=== PATIENT | female | born 1995 | race African-American/Black ===

== ENCOUNTER 2018-05-30 22:51 | Inpatient (IN) | payer MEDICAID ==
[~2018-05-30] VITALS: Ht 180.3 cm; Wt 134.3 kg
[2018-05-31] MEDS ORDERED: ONDANSETRON HCL 4MG/2ML INJ IV STA (00:23)
[2018-05-31] MEDS ORDERED: MORPHINE SULFATE 4 MG/ML CPJ (NOT FOR IM USE) IV STA (00:23)
[2018-05-31] MEDS ORDERED: SODIUM CHLORIDE 0.9% 1,000 ML IV ONE (00:23)
[2018-05-31 00:57] LABS: HEMOGLOBIN. 15.6 g/dL (12.0-16.0); MEAN CORPUSCULAR HEMOGLOBIN 28.4 pg (28.0-32.0); MEAN CORPUSCULAR VOLUME 85.6 fL (81.0-99.0); PLATELET 297 x1000/uL (130-400); RED CELL DISTRIBUTION WIDTH 14.2 % (11.6-14.6)
[2018-05-31 00:58] LABS: CHLORIDE 99 mEq/L (98-107)
[2018-05-31 01:00] LABS: INR 1.1; PROTHROMBIN TIME 11.5 sec (9.1-11.1)
[2018-05-31 01:02] LABS: CLARITY URINE TURBID (CLEAR); COLOR URINE DARK YELLOW (YELLOW); KETONES URINE TRACE (NEGATIVE); LEUKOCYTE ESTERASE URINE 3+ (NEGATIVE); NITRITE URINE NEGATIVE (NEGATIVE); OCCULT BLOOD URINE 3+ (NEGATIVE); PROTEIN URINE 1+ (NEGATIVE); SPECIFIC GRAVITY URINE 1.021 (1.005-1.030)
[2018-05-31 01:02] LABS: HCG SCREEN NEGATIVE
[2018-05-31 01:36] LABS: *AMPHETAMINES SCREEN URINE NEGATIVE (NEGATIVE)
[2018-05-31 01:37] LABS: *BARBITURATES SCREEN URINE NEGATIVE (NEGATIVE); *BENZODIAZEPINES SCREEN URINE NEGATIVE (NEGATIVE); *COCAINE SCREEN URINE NEGATIVE (NEGATIVE); METHADONE URINE SCREEN NEGATIVE (NEGATIVE); OPIATES URINE SCREEN NEGATIVE (NEGATIVE); PHENCYCLIDINE URINE SCREEN NEGATIVE (NEGATIVE)
[2018-05-31 01:43] LABS: CANNABINOID URINE SCREEN PRESUMTIVE POSITIVE (NEGATIVE)
[2018-05-31] MEDS ORDERED: SODIUM CHLORIDE 0.9% 1000ML BAG (SEPSIS BOLUS) IV ONE (02:45)
[2018-05-31 02:59] LABS: PLATELET ESTIMATE NORMAL
[2018-05-31] MEDS ORDERED: PIPERACILLIN/TAZOBACTAM 3.375GM/50ML PREMIX IV ONE (03:30)
[2018-05-31] MEDS ORDERED: VANCOMYCIN 1 G PREMIX 200 ML IV SCH (03:30)
[2018-05-31] MEDS ORDERED: PIPERACILLIN/TAZ 3.375G PREMIX 50 ML IV NR (03:45)
[2018-05-31] MEDS ORDERED: KETOROLAC 30MG/ML VIAL IV ONE (05:00)
[2018-05-31] MEDS ORDERED: CEFTRIAXONE 1,000 MG in DEXTROSE 5% WATER 50 ML IV SCH (07:45)
[2018-05-31 08:10] VITALS: BP 130/65
[2018-05-31] MEDS ORDERED: MORPHINE SULFATE 4 MG/ML CPJ (NOT FOR IM USE) IV PRN (08:25)
[2018-05-31] MEDS ORDERED: ONDANSETRON HCL 4MG TABLET PO NR (08:26)
[2018-05-31] MEDS ORDERED: CEFTRIAXONE 1 G PREMIX 50 ML IV SCH (09:30)
[2018-05-31] MEDS ORDERED: DIATR MEGLU/DIATRIZOATE SOLN 30ML PO SCH (10:15)
[2018-05-31] MEDS: ONDANSETRON HCL 4MG/2ML INJ IV PRN ×3 (10:27→22:40)
[2018-05-31 12:00] VITALS: BP 123/71
[2018-05-31] MEDS: DEXT 5%/0.45% NACL 1000ML 1,000 ML IV SCH ×2 (12:26→19:03)
[2018-05-31] MEDS ORDERED: IOHEXOL-300 100 ML BOTTLE ONE (13:34)
[2018-05-31] MEDS ORDERED: FOLI-43 PO (15:57)
[2018-05-31] MEDS ORDERED: OLAN20TA16 PO (15:57)
[2018-05-31] MEDS ORDERED: LITH300C3 PO (15:57)
[2018-05-31] MEDS ORDERED: DIPH50CA38 PO (15:58)
[2018-05-31 16:00] VITALS: BP 119/73
[2018-05-31] MEDS ORDERED: AMLO-375 MT (16:00)
[2018-05-31] MEDS ORDERED: DOCU-150 PO (16:03)
[2018-05-31] MEDS ORDERED: METO1TAB39 MT (16:03)
[2018-05-31] MEDS ORDERED: ATOR20TA65 PO (16:04)
[2018-05-31] MEDS: MORPHINE SULFATE 4 MG/ML CPJ (NOT FOR IM USE) IV PRN ×2 (16:51→22:33)
[2018-05-31] MEDS: LEVOFLOXACIN 500MG PREMIX 100 ML IV SCH (17:38)
[2018-05-31] MEDS: METRONIDAZOLE 500 MG PREMIX 100 ML IV SCH (19:02)
[2018-05-31 20:00] VITALS: BP 142/62
[2018-06-01] VITALS: BP 131/66
[2018-06-01] MEDS: METRONIDAZOLE 500 MG PREMIX 100 ML IV SCH ×3 (03:24→17:41)
[2018-06-01 04:00] VITALS: BP 136/68
[2018-06-01] MEDS: ONDANSETRON HCL 4MG/2ML INJ IV PRN ×3 (04:58→23:52)
[2018-06-01] MEDS: MORPHINE SULFATE 4 MG/ML CPJ (NOT FOR IM USE) IV PRN ×3 (04:59→23:52)
[2018-06-01 06:54] LABS: BASOPHILS % 0.1 % (0.0-2.0); EOSINOPHILS % 0.6 % (0.0-5.0); HEMATOCRIT. 36.3 % (36.0-48.0); LYMPHOCYTES % 7.7 % (20.0-50.0); MEAN CORPUSCULAR HEMOGLOBIN 28.4 pg (28.0-32.0); MEAN CORPUSCULAR VOLUME 85.9 fL (81.0-99.0); MEAN PLATELET VOLUME 8.7 fl (7.4-10.4); MONOCYTES % 2.9 % (2.0-8.0); NEUTROPHILS % 88.7 % (40.0-76.0); PLATELET 202 x1000/uL (130-400); RED BLOOD CELL COUNT 4.22 mill/uL (4.2-5.4); RED CELL DISTRIBUTION WIDTH 14.2 % (11.6-14.6)
[2018-06-01 06:58] LABS: CHLORIDE 105 mEq/L (98-107)
[2018-06-01 08:00] VITALS: BP 154/94
[2018-06-01] MEDS: PANTOPRAZOLE SODIUM 40 MG/VIAL IV SCH (08:14)
[2018-06-01] MEDS: DEXT 5%/0.45% NACL 1000ML 1,000 ML IV SCH ×2 (08:19→14:25)
[2018-06-01 12:00] VITALS: BP 118/58
[2018-06-01] MEDS ORDERED: METO-411 PO (15:41)
[2018-06-01] MEDS ORDERED: AMLO5TAB88 PO (15:41)
[2018-06-01] MEDS ORDERED: LITH600C PO (15:41)
[2018-06-01] MEDS ORDERED: ZYDS20 PO (15:54)
[2018-06-01 16:00] VITALS: BP 136/70
[2018-06-01] MEDS: LEVOFLOXACIN 500MG PREMIX 100 ML IV SCH (17:42)
[2018-06-01] MEDS ORDERED: KCL 20MEQ/100ML PREMIX 100 ML IV NR (17:45)
[2018-06-01 20:00] VITALS: BP 146/83
[2018-06-01] MEDS: DIPHENHYDRAMINE 50MG CAPSULE PO SCH (22:23)
[2018-06-01] MEDS: LITHIUM CARBONATE 150 MG CAPSULE PO SCH (22:23)
[2018-06-01] MEDS: METOPROLOL TARTRATE 50MG TABLET PO SCH (22:24)
[2018-06-01] MEDS: OLANZAPINE 10MG TABLET PO SCH (22:30)
[2018-06-02] VITALS (7 sets, daily range): BP systolic 113–137; BP diastolic 46–83
[2018-06-02] MEDS: METRONIDAZOLE 500 MG PREMIX 100 ML IV SCH ×2 (02:07→10:55)
[2018-06-02] MEDS: DEXT 5%/0.45% NACL 1000ML 1,000 ML IV SCH ×3 (03:43→20:53)
[2018-06-02 07:40] LABS: BASOPHILS % 0.3 % (0.0-2.0); EOSINOPHILS % 1.6 % (0.0-5.0); HEMATOCRIT. 35.8 % (36.0-48.0); LYMPHOCYTES % 11.9 % (20.0-50.0); MEAN CORPUSCULAR HEMOGLOBIN 28.4 pg (28.0-32.0); MEAN CORPUSCULAR VOLUME 84.9 fL (81.0-99.0); MEAN PLATELET VOLUME 8.8 fl (7.4-10.4); MONOCYTES % 5.7 % (2.0-8.0); NEUTROPHILS % 80.5 % (40.0-76.0); PLATELET 250 x1000/uL (130-400); RED BLOOD CELL COUNT 4.21 mill/uL (4.2-5.4); RED CELL DISTRIBUTION WIDTH 14.1 % (11.6-14.6)
[2018-06-02 08:13] LABS: CHLORIDE 106 mEq/L (98-107)
[2018-06-02] MEDS: ATORVASTATIN CALCIUM 20MG TABLET PO SCH (08:29)
[2018-06-02] MEDS: METOPROLOL TARTRATE 50MG TABLET PO SCH ×2 (08:30→20:54)
[2018-06-02] MEDS: LITHIUM CARBONATE 150 MG CAPSULE PO SCH ×2 (08:30→20:54)
[2018-06-02] MEDS: PANTOPRAZOLE SODIUM 40 MG/VIAL IV SCH (08:31)
[2018-06-02] MEDS: AMLODIPINE 5MG TABLET PO SCH (09:00)
[2018-06-02] MEDS: LEVOFLOXACIN 500MG TABLET PO SCH (16:49)
[2018-06-02] MEDS: METRONIDAZOLE 500MG TABLET PO SCH (17:03)
[2018-06-02] MEDS: DIPHENHYDRAMINE 50MG CAPSULE PO SCH (20:53)
[2018-06-02] MEDS: OLANZAPINE 10MG TABLET PO SCH (20:54)
[2018-06-03] VITALS: BP 128/65
[2018-06-03] MEDS: METRONIDAZOLE 500MG TABLET PO SCH ×3 (03:56→17:25)
[2018-06-03 04:00] VITALS: BP 126/78
[2018-06-03 05:37] LABS: BASOPHILS % 0.1 % (0.0-2.0); EOSINOPHILS % 3.7 % (0.0-5.0); HEMATOCRIT. 36.2 % (36.0-48.0); HEMOGLOBIN. 12.2 g/dL (12.0-16.0); LYMPHOCYTES % 18.3 % (20.0-50.0); MEAN CORPUSCULAR HEMOGLOBIN 28.6 pg (28.0-32.0); MEAN CORPUSCULAR VOLUME 84.9 fL (81.0-99.0); MEAN PLATELET VOLUME 8.4 fl (7.4-10.4); MONOCYTES % 9.6 % (2.0-8.0); NEUTROPHILS % 68.3 % (40.0-76.0); PLATELET 270 x1000/uL (130-400); RED BLOOD CELL COUNT 4.27 mill/uL (4.2-5.4); RED CELL DISTRIBUTION WIDTH 14.3 % (11.6-14.6)
[2018-06-03 05:46] LABS: CHLORIDE 107 mEq/L (98-107)
[2018-06-03] MEDS: DEXT 5%/0.45% NACL 1000ML 1,000 ML IV SCH ×2 (06:27→22:55)
[2018-06-03 08:00] VITALS: BP 166/94
[2018-06-03] MEDS: METOPROLOL TARTRATE 50MG TABLET PO SCH ×2 (09:00→22:45)
[2018-06-03] MEDS: AMLODIPINE 5MG TABLET PO SCH (09:00)
[2018-06-03] MEDS: PANTOPRAZOLE SODIUM 40 MG/VIAL IV SCH (09:56)
[2018-06-03] MEDS: ATORVASTATIN CALCIUM 20MG TABLET PO SCH (09:56)
[2018-06-03] MEDS: LITHIUM CARBONATE 150 MG CAPSULE PO SCH ×2 (10:23→22:46)
[2018-06-03 12:00] VITALS: BP 140/88
[2018-06-03] MEDS: MORPHINE SULFATE 4 MG/ML CPJ (NOT FOR IM USE) IV PRN (13:26)
[2018-06-03] MEDS ORDERED: POTASSIUM CHLORIDE 20MEQ TABLET SR PO SCH (14:15)
[2018-06-03 16:00] VITALS: BP 139/81
[2018-06-03] MEDS: LEVOFLOXACIN 500MG TABLET PO SCH (17:25)
[2018-06-03 20:00] VITALS: BP 123/71
[2018-06-03] MEDS: DIPHENHYDRAMINE 50MG CAPSULE PO SCH (22:45)
[2018-06-03] MEDS: OLANZAPINE 10MG TABLET PO SCH (22:46)
[2018-06-04] VITALS (7 sets, daily range): BP systolic 113–139; BP diastolic 69–86
[2018-06-04] MEDS: METRONIDAZOLE 500MG TABLET PO SCH ×3 (03:54→18:16)
[2018-06-04] MEDS: DEXT 5%/0.45% NACL 1000ML 1,000 ML IV SCH ×3 (03:57→21:51)
[2018-06-04 06:01] LABS: BASOPHILS % 0.2 % (0.0-2.0); EOSINOPHILS % 3.6 % (0.0-5.0); HEMOGLOBIN. 12.5 g/dL (12.0-16.0); LYMPHOCYTES % 18.7 % (20.0-50.0); MEAN CORPUSCULAR HEMOGLOBIN 28.6 pg (28.0-32.0); MEAN CORPUSCULAR VOLUME 84.8 fL (81.0-99.0); MEAN PLATELET VOLUME 8.4 fl (7.4-10.4); MONOCYTES % 8.2 % (2.0-8.0); NEUTROPHILS % 69.3 % (40.0-76.0); PLATELET 304 x1000/uL (130-400); RED BLOOD CELL COUNT 4.36 mill/uL (4.2-5.4); RED CELL DISTRIBUTION WIDTH 14.5 % (11.6-14.6)
[2018-06-04 06:15] LABS: CHLORIDE 108 mEq/L (98-107)
[2018-06-04] MEDS: METOPROLOL TARTRATE 50MG TABLET PO SCH ×2 (08:43→21:05)
[2018-06-04] MEDS: ATORVASTATIN CALCIUM 20MG TABLET PO SCH (08:43)
[2018-06-04] MEDS: AMLODIPINE 5MG TABLET PO SCH (08:44)
[2018-06-04] MEDS: PANTOPRAZOLE SODIUM 40 MG/VIAL IV SCH (08:44)
[2018-06-04] MEDS: LITHIUM CARBONATE 150 MG CAPSULE PO SCH ×2 (08:44→21:03)
[2018-06-04] MEDS: MORPHINE SULFATE 4 MG/ML CPJ (NOT FOR IM USE) IV PRN ×2 (12:21→18:18)
[2018-06-04] MEDS: LEVOFLOXACIN 500MG TABLET PO SCH (18:16)
[2018-06-04] MEDS: DIPHENHYDRAMINE 50MG CAPSULE PO SCH (21:03)
[2018-06-04] MEDS: OLANZAPINE 10MG TABLET PO SCH (21:05)
[2018-06-05] VITALS: BP 136/67
[2018-06-05] MEDS: METRONIDAZOLE 500MG TABLET PO SCH ×2 (02:18→09:14)
[2018-06-05] MEDS: MORPHINE SULFATE 4 MG/ML CPJ (NOT FOR IM USE) IV PRN (03:49)
[2018-06-05 04:46] VITALS: BP 134/58
[2018-06-05 08:00] VITALS: BP 106/79
[2018-06-05] MEDS: ATORVASTATIN CALCIUM 20MG TABLET PO SCH (09:14)
[2018-06-05] MEDS: LITHIUM CARBONATE 150 MG CAPSULE PO SCH (09:15)
[2018-06-05] MEDS: PANTOPRAZOLE SODIUM 40 MG/VIAL IV SCH (09:15)
[2018-06-05] MEDS: METOPROLOL TARTRATE 50MG TABLET PO SCH (09:15)
[2018-06-05] MEDS: AMLODIPINE 5MG TABLET PO SCH (09:15)
[2018-06-05] MEDS: DEXT 5%/0.45% NACL 1000ML 1,000 ML IV SCH (09:16)
== END 2018-06-05 11:35 | disposition home or self-care (01) | DRG 720 ==
LOC: ER 23:10 → 6EST 05-31 04:10 → ENRESERV 05-31 07:00 → 6EST 05-31 23:00
PROVIDERS: ADMIT Internal Medicine; ATTEND Internal Medicine
DX: A41.9 Sepsis, unspecified organism (principal); N17.9 Acute kidney failure, unspecified; E66.01 Morbid (severe) obesity due to excess calories; F20.9 Schizophrenia, unspecified; K56.7 Ileus, unspecified; Z68.41 Body mass index [BMI] 40.0-44.9, adult; K52.9 Noninfective gastroenteritis and colitis, unspecified; N39.0 Urinary tract infection, site not specified; F31.9 Bipolar disorder, unspecified; J98.11 Atelectasis; F12.90 Cannabis use, unspecified, uncomplicated; F17.210 Nicotine dependence, cigarettes, uncomplicated; Z71.6 Tobacco abuse counseling
CPT/HCPCS: 36415; 71045; 74018; 74176; 74177; 80048; 80053; 80305; 81003; 82270; 83605; 83690; 84703; 85025; 85610; 87015; 87040; 87045; 87086; 87427; 87449; 87493; 89055; 93005; 96361; 96374; 96375; 99285; C9113; J0696; J1885; J1956; J2270; J2405; J2543; J3370; J3480; J3490; J7030; Q0163; Q9963; Q9967